=== PATIENT | female | born 1955 | race African-American/Black ===

== ENCOUNTER 2020-11-28 15:35 | Emergency (ER) | payer MEDICARE, MEDICAID ==
[~2020-11-28] VITALS: Ht 160 cm; Wt 103.0 kg
--- NOTE | 2020-11-28 17:00 | NUR ---
ON ARRIVAL TO ED ROOM 15, PT PLACED ON ALL ROOM MONITORING. HOME OXYGEN AT 3LITERS MAINTAINED. BSC IN ROOM, PT AWARE OF NEED FOR UA. WARM BLANKET PROVIDED, CALL LIGHT WITHIN REACH.
[2020-11-28 17:07] LABS: BASOPHILS % (AUTO) 1 % (0-1); EOSINOPHILS % (AUTO) 3 % (1-7); LYMPHOCYTES % (AUTO) 22 % (22-44); MEAN CORPUSCULAR HEMOGLOBIN 28.9 pg (27.0-34.8); MEAN CORPUSCULAR HGB CONC 34.4 g/dL (32.4-35.8); MEAN PLATELET VOLUME 9.6 fL (7.4-10.4); MONOCYTES % (AUTO) 10 % (2-9); NEUTROPHILS % (AUTO) 64 % (42-75); PLATELET COUNT 159 x10^3/uL (130-400); RED BLOOD COUNT 4.13 x10^6/uL (3.82-5.3); RED CELL DISTRIBUTION WIDTH 14.4 % (9.6-15.2)
[2020-11-28 17:09] LABS: ALANINE AMINOTRANSFERASE 28 U/L (12-78); ALBUMIN 2.7 g/dL (3.4-5.0); ANION GAP 5 mmol/L (5-15); CALCIUM 8.7 mg/dL (8.5-10.1); CHLORIDE 106 mmol/L (98-107); CREATININE 1.94 mg/dL (0.55-1.02)
[2020-11-28 17:10] LABS: MD NO
[2020-11-28 17:12] LABS: ALKALINE PHOSPHATASE 107 U/L (45-117); BILIRUBIN,TOTAL 0.3 mg/dL (0.2-1.0); TOTAL PROTEIN 6.4 g/dL (6.4-8.2)
--- NOTE | 2020-11-28 17:51 | NUR ---
ALL RESULTS BACK, PT FOR RECHECK. Addendum: 11/28/20 at 1752 by GIOVANY PT SLEEPING, VSS/UPDATED IN COMPUTER.
[2020-11-28 19:28] VITALS: BP 139/72
--- NOTE | 2020-11-28 19:28 | NUR ---
AFTER REPORT FROM [facility] ASSESSMENT OF PATIENT UNREMARKABLE. REVIEWED POC. PATIENT/SON AGREEABLE PROVIDED WITH REFIL RX FOR INSULIN
== END 2020-11-28 19:30 | disposition home or self-care (01) ==
LOC: ED 18:26
DX: N18.30 Chronic kidney disease, stage 3 unspecified (principal); R53.1 Weakness; J44.9 Chronic obstructive pulmonary disease, unspecified; R10.9 Unspecified abdominal pain; R94.31 Abnormal electrocardiogram [ECG] [EKG]; Z88.1 Allergy status to other antibiotic agents
CPT/HCPCS: 36415; 71045; 80053; 85025; 93005; 99285